=== PATIENT | male | born 1970 | race Caucasian/White ===

== ENCOUNTER 2016-11-18 17:59 | Outpatient (CLI) | payer OTHER ==
--- NOTE | 2016-11-18 18:38 | DIAGNOSTIC IMAGING REPORT ---
PROCEDURE: XR TIBIA AND FIBULA - RIGHT INDICATION: Right leg pain. TECHNIQUE: AP and lateral views. COMPARISON: None. FINDINGS: Osseous structures are normal. IMPRESSION: 1. Normal right tibia and fibula.
--- NOTE | 2016-11-18 23:28 | DIAGNOSTIC IMAGING REPORT ---
PROCEDURE: XR FINGER - LEFT (third finger). INDICATION: Left third finger pain and swelling. TECHNIQUE: Three views. COMPARISON: None. FINDINGS: There is moderate soft tissue swelling of the left third finger. Osseous structures and joint spaces are normal. No evidence of fracture. IMPRESSION: 1. Moderate soft tissue swelling of the left third finger.
== END 2016-11-18 23:00 | disposition home or self-care (01) ==
LOC: XR SRH 17:59
DX: M79.645 Pain in left finger(s) (principal); M79.604 Pain in right leg; M79.9 Soft tissue disorder, unspecified